=== PATIENT | female | born 1970 | race African-American/Black ===

== ENCOUNTER 2022-03-30 10:51 | Inpatient (IN) | payer OTHER ==
[2022-03-30 11:11] VITALS: BMI 24.0
[2022-03-30] MEDS ORDERED: POLYETHYLENE GLYCOL (HEALTHYLAX) 3350 17 GM PACKET PO PRN (11:54)
[2022-03-30] MEDS ORDERED: ONDANSETRON *ODT* 4 MG TABLET SL PRN (11:54)
[2022-03-30] MEDS ORDERED: LOPERAMIDE HCL 2 MG CAPSULE PO PRN (11:54)
[2022-03-30] MEDS ORDERED: ACETAMINOPHEN 325 MG TABLET (FP) PO PRN ×2 (11:54)
[2022-03-30] MEDS ORDERED: BISMUTH SUBSALICYLATE 262 MG/15 ML BTL PO PRN (11:54)
[2022-03-30] MEDS ORDERED: MAG HYDROX/AL HYDROX/SIMETH 30 ML UNIT-DOSE CUP PO PRN (11:54)
[2022-03-30] MEDS ORDERED: MAGNESIUM HYDROX 2400MG/30ML ORAL SUSPENSION 30 ML CUP PO PRN (11:54)
[2022-03-30] MEDS ORDERED: BENZOCAINE/MENTHOL (CHLORASEPTIC ) LOZENGE MM PRN (11:54)
[2022-03-30] MEDS ORDERED: DICYCLOMINE HCL 10 MG CAPSULE PO PRN (11:54)
[2022-03-30] MEDS ORDERED: NICOTINE 10 MG CARTRIDGE (INHALER) IH PRN (11:54)
[2022-03-30] MEDS ORDERED: IBUPROFEN 400 MG TABLET (FP) PO PRN (11:54)
[2022-03-30] MEDS ORDERED: NALOXONE HCL (KLOXXADO) 8 MG SPRAY NS PRN (11:54)
[2022-03-30] MEDS ORDERED: LORazepam 2 MG TABLET ONE (12:16)
[2022-03-30] MEDS: LORazepam 2 MG TABLET PO SCH ×3 (12:18→22:19)
[2022-03-30] MEDS: NICOTINE 21 MG/24 HOURS TOPICAL PATCH TD SCH (12:46)
[2022-03-30] MEDS: PRENATAL VITAMINS W/ FOLIC ACID TABLET (FP) PO SCH (12:46)
[2022-03-30 18:58] LABS: HEMATOCRIT 38.6 % (32.4-45.2); HEMOGLOBIN 12.5 GM/dL (10.7-15.3); MCH 30.8 pg (25.7-33.7); MCHC 32.5 g/dl (32.0-36.0); MEAN CELL VOLUME 94.8 fl (80-96); MEAN PLT VOLUME 7.9 fl (7.5-11.1); PLATELET COUNT 198 10^3/uL (134-434); RBC 4.07 M/mm3 (3.60-5.2); RDW 14.1 % (11.6-15.6); WHITE BLOOD COUNT 3.5 K/mm3 (4.0-10.0)
[2022-03-30 19:06] LABS: CALCIUM 8.2 mg/dL (8.5-10.1)
[2022-03-30 19:07] LABS: ALBUMIN 3.6 g/dl (3.4-5.0); BLOOD UREA NITROGEN 12.4 mg/dL (7-18)
[2022-03-30 19:10] LABS: CREATININE 0.8 mg/dL (0.55-1.3)
[2022-03-30 19:11] LABS: BILIRUBIN,TOTAL 0.7 mg/dL (0.2-1); TOT PROT 6.6 g/dl (6.4-8.2)
[2022-03-30] MEDS: MELATONIN 5 MG TABLETS PO SCH (22:19)
[2022-03-30] MEDS: THIAMINE HCL 100 MG TABLET (FP) PO SCH (22:19)
[2022-03-31] MEDS: LORazepam 2 MG TABLET PO SCH ×4 (06:20→22:46)
[2022-03-31] MEDS: PRENATAL VITAMINS W/ FOLIC ACID TABLET (FP) PO SCH (10:05)
[2022-03-31] MEDS: NICOTINE 21 MG/24 HOURS TOPICAL PATCH TD SCH (10:06)
[2022-03-31] MEDS: LORazepam 1 MG TABLET PO PRN (12:39)
[2022-03-31] MEDS: hydrOXYzine PAMOATE 25 MG CAPSULE (FP) PO PRN ×2 (12:39→22:48)
[2022-03-31] MEDS: MELATONIN 5 MG TABLETS PO SCH (22:47)
[2022-03-31] MEDS: THIAMINE HCL 100 MG TABLET (FP) PO SCH (22:47)
[2022-04-01] MEDS: LORazepam 1 MG TABLET PO SCH ×4 (05:37→22:14)
[2022-04-01] MEDS: METHOCARBAMOL 500 MG TABLET PO PRN ×2 (05:39→13:17)
[2022-04-01] MEDS: hydrOXYzine PAMOATE 25 MG CAPSULE (FP) PO PRN (10:10)
[2022-04-01] MEDS: PRENATAL VITAMINS W/ FOLIC ACID TABLET (FP) PO SCH (10:10)
[2022-04-01] MEDS: NICOTINE 21 MG/24 HOURS TOPICAL PATCH TD SCH (10:11)
[2022-04-01] MEDS: LORazepam 1 MG TABLET PO PRN ×2 (13:18→19:39)
[2022-04-01] MEDS: INSULIN SLIDING SCALE (NOVOLOG) 1 VIAL SQ SCH (17:10)
[2022-04-01] MEDS: MELATONIN 5 MG TABLETS PO SCH (22:14)
[2022-04-01] MEDS: THIAMINE HCL 100 MG TABLET (FP) PO SCH (22:14)
[2022-04-02] MEDS: LORazepam 0.5 MG TABLET PO SCH ×4 (05:29→22:23)
[2022-04-02] MEDS: hydrOXYzine PAMOATE 25 MG CAPSULE (FP) PO PRN ×2 (05:30→14:21)
[2022-04-02] MEDS: INSULIN SLIDING SCALE (NOVOLOG) 1 VIAL SQ SCH ×2 (06:40→16:54)
[2022-04-02] MEDS: LORazepam 0.5 MG TABLET PO PRN ×2 (07:57→14:21)
[2022-04-02] MEDS: PRENATAL VITAMINS W/ FOLIC ACID TABLET (FP) PO SCH (10:01)
[2022-04-02] MEDS: NICOTINE 21 MG/24 HOURS TOPICAL PATCH TD SCH (10:01)
[2022-04-02] MEDS: IBUPROFEN 600 MG TABLET (FP) PO PRN (14:26)
[2022-04-02] MEDS ORDERED: SUVOREXANT 10 MG TABLET PO PRN (22:00)
[2022-04-02] MEDS: MELATONIN 5 MG TABLETS PO SCH (22:21)
[2022-04-02] MEDS: THIAMINE HCL 100 MG TABLET (FP) PO SCH (22:23)
[2022-04-03] MEDS ORDERED: LORazepam 0.5 MG TABLET PO ONE (05:00)
[2022-04-03] MEDS: hydrOXYzine PAMOATE 25 MG CAPSULE (FP) PO PRN (05:34)
[2022-04-03] MEDS ORDERED: INSULIN SLIDING SCALE (NOVOLOG) 1 VIAL SQ ONE (05:36)
[2022-04-03] MEDS: IBUPROFEN 600 MG TABLET (FP) PO PRN (05:37)
[2022-04-03] MEDS: INSULIN SLIDING SCALE (NOVOLOG) 1 VIAL SQ SCH (08:21)
[2022-04-03 09:54] VITALS: RESP 18
[2022-04-03] MEDS: METHOCARBAMOL 500 MG TABLET PO PRN (10:04)
[2022-04-03] MEDS: NICOTINE 21 MG/24 HOURS TOPICAL PATCH TD SCH (10:04)
[2022-04-03] MEDS: PRENATAL VITAMINS W/ FOLIC ACID TABLET (FP) PO SCH (10:04)
[2022-04-03 13:34] VITALS: BP 117/78; PULSE 93; TEMP 98.3
== END 2022-04-03 12:54 | disposition other institution (70) | DRG 897 ==
LOC: YASAS 10:51 → Y3N 12:05
PROVIDERS: ADMIT Allergy & Immunology; ATTEND Surgery
PROC: HZ2ZZZZ Detoxification Services for Substance Abuse Treatment (ICD-10-PCS; principal; 2022-03-30)
DX: F10.230 Alcohol dependence with withdrawal, uncomplicated (principal); F12.20 Cannabis dependence, uncomplicated; F17.210 Nicotine dependence, cigarettes, uncomplicated; F19.24 Other psychoactive substance dependence with psychoactive substance-induced mood disorder; F32.9 Major depressive disorder, single episode, unspecified; F43.10 Post-traumatic stress disorder, unspecified; F41.9 Anxiety disorder, unspecified; R73.9 Hyperglycemia, unspecified; Z86.19 Personal history of other infectious and parasitic diseases; Z91.410 Personal history of adult physical and sexual abuse
CPT/HCPCS: 36415; 80053; 81025; 82962; 83036; 85027; 86593; 86780; C9803-CS; U0003; U0005

== ENCOUNTER 2022-04-03 13:00 | Inpatient (IN) | payer OTHER ==
[2022-04-03] MEDS ORDERED: POLYETHYLENE GLYCOL (HEALTHYLAX) 3350 17 GM PACKET PO PRN (17:28)
[2022-04-03] MEDS ORDERED: MAG HYDROX/AL HYDROX/SIMETH 30 ML UNIT-DOSE CUP PO PRN (17:28)
[2022-04-03] MEDS ORDERED: BENZOCAINE/MENTHOL (CHLORASEPTIC ) LOZENGE MM PRN (17:28)
[2022-04-03] MEDS ORDERED: LOPERAMIDE HCL 2 MG CAPSULE PO PRN (17:28)
[2022-04-03] MEDS ORDERED: ACETAMINOPHEN 325 MG TABLET (FP) PO PRN (17:28)
[2022-04-03] MEDS ORDERED: NICOTINE 10 MG CARTRIDGE (INHALER) IH PRN (17:28)
[2022-04-03] MEDS ORDERED: MAGNESIUM HYDROX 2400MG/30ML ORAL SUSPENSION 30 ML CUP PO PRN (17:28)
[2022-04-03] MEDS ORDERED: P-EPHED 60MG/TRIPROLIDI 2.5MG TABLET PO PRN (17:28)
[2022-04-03] MEDS: hydrOXYzine PAMOATE 25 MG CAPSULE (FP) PO PRN ×2 (17:45→21:43)
[2022-04-03] MEDS: IBUPROFEN 400 MG TABLET (FP) PO PRN (17:45)
[2022-04-03] MEDS: THIAMINE HCL 100 MG TABLET (FP) PO SCH (21:43)
[2022-04-03] MEDS: INSULIN SLIDING SCALE (NOVOLOG) 1 VIAL SQ SCH (21:44)
[2022-04-03] MEDS ORDERED: MELATONIN 5 MG TABLETS PO SCH (22:00)
[2022-04-04] MEDS: hydrOXYzine PAMOATE 25 MG CAPSULE (FP) PO PRN ×2 (06:05→10:01)
[2022-04-04] MEDS: INSULIN SLIDING SCALE (NOVOLOG) 1 VIAL SQ SCH ×4 (07:20→21:54)
[2022-04-04] MEDS ORDERED: INSULIN (NOVOLOG) ASPART 100 UNITS/ML 10ML VIAL ONE ×4 (07:22→21:49)
[2022-04-04] MEDS: PRENATAL VITAMINS W/ FOLIC ACID TABLET (FP) PO SCH (09:58)
[2022-04-04] MEDS: NICOTINE 7 MG/24 HOURS TOPICAL PATCH TD SCH (09:59)
[2022-04-04] MEDS: hydrOXYzine PAMOATE 50 MG CAPSULE (FP) PO PRN ×2 (15:06→21:49)
[2022-04-04] MEDS: THIAMINE HCL 100 MG TABLET (FP) PO SCH (21:47)
[2022-04-04] MEDS: SUVOREXANT 10 MG TABLET PO PRN (21:48)
[2022-04-04] MEDS: IBUPROFEN 400 MG TABLET (FP) PO PRN (21:50)
[2022-04-05] MEDS: hydrOXYzine PAMOATE 50 MG CAPSULE (FP) PO PRN ×3 (04:12→17:00)
[2022-04-05] MEDS: INSULIN SLIDING SCALE (NOVOLOG) 1 VIAL SQ SCH ×4 (06:14→21:41)
[2022-04-05] MEDS: NICOTINE 7 MG/24 HOURS TOPICAL PATCH TD SCH (09:52)
[2022-04-05] MEDS: PRENATAL VITAMINS W/ FOLIC ACID TABLET (FP) PO SCH (09:52)
[2022-04-05] MEDS ORDERED: INSULIN (NOVOLOG) ASPART 100 UNITS/ML 10ML VIAL ONE (11:04)
[2022-04-05] MEDS: IBUPROFEN 400 MG TABLET (FP) PO PRN ×2 (12:13→18:14)
[2022-04-05] MEDS: LIDOCAINE 5% TOPICAL PATCH TP SCH (16:08)
[2022-04-05] MEDS: VARENICLINE TARTRATE 0.5 MG TAB PO SCH (21:25)
[2022-04-05] MEDS: THIAMINE HCL 100 MG TABLET (FP) PO SCH (21:25)
[2022-04-05] MEDS: INSULIN (LEVEMIR) 100 UNITS/ML UNITS SQ SCH (21:26)
[2022-04-05] MEDS: LIDOCAINE PATCH REMOVAL MC SCH (21:39)
[2022-04-06] MEDS: SUVOREXANT 10 MG TABLET PO PRN (00:53)
[2022-04-06] MEDS: IBUPROFEN 400 MG TABLET (FP) PO PRN ×4 (00:54→22:13)
[2022-04-06] MEDS: INSULIN SLIDING SCALE (NOVOLOG) 1 VIAL SQ SCH ×4 (06:52→22:16)
[2022-04-06] MEDS: hydrOXYzine PAMOATE 50 MG CAPSULE (FP) PO PRN ×3 (06:53→22:13)
[2022-04-06 07:26] VITALS: RESP 18
[2022-04-06] MEDS: PRENATAL VITAMINS W/ FOLIC ACID TABLET (FP) PO SCH (10:00)
[2022-04-06] MEDS: LIDOCAINE 5% TOPICAL PATCH TP SCH (10:00)
[2022-04-06] MEDS: VARENICLINE TARTRATE 0.5 MG TAB PO SCH ×2 (10:02→22:15)
[2022-04-06] MEDS ORDERED: INSULIN (NOVOLOG) ASPART 100 UNITS/ML 10ML VIAL ONE (11:05)
[2022-04-06 11:33] LABS: ALBUMIN 3.9 g/dl (3.4-5.0); BILIRUBIN,TOTAL 0.3 mg/dL (0.2-1); BLOOD UREA NITROGEN 13.8 mg/dL (7-18); CALCIUM 9.1 mg/dL (8.5-10.1); CREATININE 0.7 mg/dL (0.55-1.3)
[2022-04-06 13:00] LABS: HIV INTERPRETATION NEGATIVE (NEGATIVE)
[2022-04-06] MEDS ORDERED: SUVOREXANT 15 MG TABLET PO PRN (22:00)
[2022-04-06] MEDS: INSULIN (LEVEMIR) 100 UNITS/ML UNITS SQ SCH (22:15)
[2022-04-06] MEDS: LIDOCAINE PATCH REMOVAL MC SCH (22:16)
[2022-04-06] MEDS: THIAMINE HCL 100 MG TABLET (FP) PO SCH (22:17)
[2022-04-07] MEDS: IBUPROFEN 400 MG TABLET (FP) PO PRN ×2 (06:01→12:00)
[2022-04-07] MEDS: hydrOXYzine PAMOATE 50 MG CAPSULE (FP) PO PRN ×2 (06:01→12:00)
[2022-04-07] MEDS: INSULIN SLIDING SCALE (NOVOLOG) 1 VIAL SQ SCH ×2 (06:04→11:38)
[2022-04-07 08:25] VITALS: BP 109/74; PULSE 79; TEMP 97.9
[2022-04-07] MEDS ORDERED: ESCITALOPRAM OXALATE 10 MG TABLET PO SCH (10:00)
[2022-04-07] MEDS: LIDOCAINE 5% TOPICAL PATCH TP SCH (10:17)
[2022-04-07] MEDS: VARENICLINE TARTRATE 0.5 MG TAB PO SCH (10:17)
[2022-04-07] MEDS: PRENATAL VITAMINS W/ FOLIC ACID TABLET (FP) PO SCH (10:17)
[2022-04-07] MEDS ORDERED: INSULIN (NOVOLOG) ASPART 100 UNITS/ML 10ML VIAL ONE (11:25)
== END 2022-04-07 16:27 | disposition home or self-care (01) | DRG 895 ==
LOC: YASAS 13:00 → Y5N 13:01
PROVIDERS: ADMIT Allergy & Immunology; ATTEND Psychiatry & Neurology Pain Medicine
PROC: HZ42ZZZ Group Counseling for Substance Abuse Treatment, Cognitive-Behavioral (ICD-10-PCS; principal; 2022-04-03)
DX: F10.20 Alcohol dependence, uncomplicated (principal); F14.20 Cocaine dependence, uncomplicated; F12.20 Cannabis dependence, uncomplicated; F17.210 Nicotine dependence, cigarettes, uncomplicated; F19.24 Other psychoactive substance dependence with psychoactive substance-induced mood disorder; F41.9 Anxiety disorder, unspecified; F43.10 Post-traumatic stress disorder, unspecified; M54.41 Lumbago with sciatica, right side; G89.29 Other chronic pain; Z20.822 Contact with and (suspected) exposure to COVID-19; R26.89 Other abnormalities of gait and mobility; R09.3 Abnormal sputum
CPT/HCPCS: 36415; 80053; 82962; 87389; C9803-CS; U0003; U0005